=== PATIENT | female | born 1990 | race African-American/Black ===

== ENCOUNTER 2025-06-14 12:41 | Emergency (ER) | payer OTHER ==
[~2025-06-14] VITALS: Ht 160 cm; Wt 65.8 kg
[2025-06-14 12:46] VITALS: BP 127/81
[2025-06-14 13:09] VITALS: BP 129/76; O2SAT 99
== END 2025-06-14 13:10 | disposition home or self-care (01) ==
LOC: ER 12:49
DX: T23.209A Burn of second degree of unspecified hand, unspecified site, initial encounter (principal); T31.0 Burns involving less than 10% of body surface
CPT/HCPCS: A4606; A4663